=== PATIENT | male | born 1980 | race Caucasian/White ===

== ENCOUNTER 2021-01-27 07:48 | Emergency (ER) | payer OTHER ==
[2021-01-27 08:42] LABS: HEMOGLOBIN 15.1 gm/dl (14.0-17.5); RED BLOOD COUNT 4.74 M/UL (4.20-5.50); WHITE BLOOD COUNT 11.9 K/UL (4.5-11.0)
[2021-01-27 09:09] LABS: BUN/CREATININE RATIO 13 (0-10)
== END 2021-01-27 09:52 | disposition home or self-care (01) ==
LOC: ER1 07:48
PROVIDERS: Emergency Medicine
DX: S01.01XA Laceration without foreign body of scalp, initial encounter (principal); R55 Syncope and collapse; F17.200 Nicotine dependence, unspecified, uncomplicated; X58.XXXA Exposure to other specified factors, initial encounter; Z23 Encounter for immunization
CPT/HCPCS: 70450; 71045; 72125; 80053; 82550; 82553; 83735; 83874; 84484; 85025; 90471; 90715; 93005; 96374; 99284; J1885